=== PATIENT | male | born 1935 | race Caucasian/White ===

== ENCOUNTER 2017-04-25 14:20 | Emergency (ER) | payer MEDICARE, OTHER ==
[2017-04-25] MEDS: SOD CHLORIDE 0.9% 500 ML IV (14:57)
[2017-04-25 15:25] LABS: PROTIME 14.4 Sec (11.9-14.9); PT RATIO 1.1
[2017-04-25 15:33] LABS: ANION GAP 14 (8-16); BLOOD UREA NITROGEN 69 mg/dl (7-20); CALCIUM 8.9 mg/dl (8.4-10.2); CARBON DIOXIDE 29 mmol/L (21-31); CHLORIDE 97 mmol/L (97-110); CREATININE 1.29 mg/dl (0.61-1.24); GLUCOSE 123 mg/dl (70-220); POTASSIUM 3.2 mmol/L (3.5-5.1); SODIUM 137 mmol/L (135-144)
[2017-04-25 15:44] LABS: TROPONIN-I 0.049 ng/ml (0.00-0.12)
== END 2017-04-25 18:07 | disposition left against medical advice (07) ==
LOC: E/R 14:20
DX: S51.011A Laceration without foreign body of right elbow, initial encounter (principal); R55 Syncope and collapse; I50.9 Heart failure, unspecified; R94.31 Abnormal electrocardiogram [ECG] [EKG]; E87.6 Hypokalemia; I10 Essential (primary) hypertension; F17.210 Nicotine dependence, cigarettes, uncomplicated; V87.7XXA Person injured in collision between other specified motor vehicles (traffic), initial encounter; Z95.0 Presence of cardiac pacemaker
CPT/HCPCS: 36415; 71045; 80048; 84484; 85610; 93005; 99285-25